=== PATIENT | female | born 1975 | race Asian ===

== ENCOUNTER 2022-09-09 07:34 | Outpatient (CLI) | payer BC ==
[2022-09-09] MEDS ORDERED: Iopamidol 370 76% 100 ML VIAL ONE (09:29)
== END 2022-09-09 07:35 | disposition home or self-care (01) ==
LOC: CSHCT 07:34
PROVIDERS: ATTEND Surgery
DX: K43.9 Ventral hernia without obstruction or gangrene (principal); K80.20 Calculus of gallbladder without cholecystitis without obstruction; K42.9 Umbilical hernia without obstruction or gangrene
CPT/HCPCS: 74177; Q9967

== ENCOUNTER 2022-10-13 22:58 | Emergency (ER) | payer BC ==
[2022-10-13 23:25] LABS: #Basophils 0.1 10x3/uL (0.0-0.2); #Eosinphils 0.1 10x3/uL (0.0-0.5); #Monocytes 0.7 10x3/uL (0.0-1.1); #Neutrophils 4.5 10x3/uL (1.5-8.4); %Basophils 0.6 % (0.0-2.0); %Eosinophils 1.3 % (0.0-6.0); %Lymphocytes 49.6 % (18.0-47.0); %Monocytes 6.7 % (0.0-10.0); %Neutrophils 41.6 % (40.0-75.0); Hematocrit 37.4 % (34.9-44.5); Mean Corpuscular HGB CONC 32.1 g/dL (32.0-36.0); Mean Corpuscular Hemoglobin 21.1 pg (27.0-33.0); Mean Corpuscular Volume 65.7 fl (81.6-98.3); Platelet Count 361 10x3/uL (150-450); RBC Distribution Width 14.4 % (11.5-14.5); Red Blood Cell (RBC) Count 5.69 10x6/uL (3.90-5.03); White Blood Cell (WBC) Count 10.9 10x3/uL (3.5-10.5)
[2022-10-13 23:37] LABS: ALT (SGPT) 23 U/L (8-55); AST (SGOT) 35 U/L (5-34); Albumin 4.5 g/dL (3.5-5.0); Alkaline Phosphatase 90 U/L (40-110); Anion Gap 17 mmol/L (10-20); BUN (Urea Nitrogen) 10 mg/dL (7.0-18.7); Bilirubin, Total 0.5 mg/dL (0.2-1.2); Calc. Creatinine Clearance 0 mL/min (70-130); Carbon Dioxide 23 mmol/L (22-29); Chloride 105 mmol/L (98-107); Estimated GFR 102; Globulin 3.2 g/dL (2.4-3.5); Glucose 99 mg/dL (70-105); Lipase 46 U/L (8-78); Potassium 3.5 mmol/L (3.5-5.1); Protein, Total 7.7 g/dL (6.0-8.3); Sodium 141 mmol/L (136-145)
[2022-10-13 23:42] LABS: Troponin I Less than 0.010 ng/mL (< 0.028)
[2022-10-13] MEDS ORDERED: Ketorolac Tromethamine 30 MG/ML VIAL IVP SCH (23:45)
[2022-10-14] MEDS ORDERED: Mag-Al Plus 1200 MG/1200 MG/120 MG/30 ML UDCUP ONE (00:18)
[2022-10-14 01:36] LABS: Microcytosis SLIGHT = 6-15 cells (100X) (0-5/hpf)
[2022-10-14 01:37] LABS: Platelet Adequacy Comment Appears Adequate
== END 2022-10-14 01:05 | disposition home or self-care (01) ==
LOC: CSHERS 22:58
DX: K80.20 Calculus of gallbladder without cholecystitis without obstruction (principal)
CPT/HCPCS: 71045; 76705; 80053; 83690; 84484; 85025; 93005; 96374; J1885